=== PATIENT | female | born 1935 | race Caucasian/White ===

== ENCOUNTER 2017-01-14 22:00 | Inpatient (IN) | payer MEDICARE, OTHER ==
[~2017-01-14] VITALS: Ht 167.6 cm; Wt 89.4 kg
[~2017-01-14 22:00] MED LIST: ACET-1757 PO; ACID1TAB7 PO; AMLO10TA2 PO; ASPI-621 PO; ATOR10TA9 PO; CHOL500014 PO; CITA20TA9 PO; CLIN300C93 PO; CLOP75TA PO; DOCU100C8 PO; ENAL20TA68 PO; ESCI20TA PO; ESOM40CA PO; GABA600T PO; GUAI600T53 PO; HEPA500024 SQ; HYDR-3138 PO; IPRA15SP2 INH; IPRA3AMP NEB; IPRA4AER INH; IRBE150T25 PO; IRBE150T49 PO; LEVO250T8 PO; LEVO88TA4 PO; LORA-445 PO; MAG355OR14 PO; MOME13HF INH; NITR0.4T8 SL; ONDA4TAB10 PO; POTA10TA11 PO; POTA10TA57 PO; PRED10TA PO; PRED5TAB19 PO; PREG50CA PO; ROSU40TA PO; TEMA15CA6 PO; VENL150C PO; VENL75TA PO
[2017-01-14] MEDS ORDERED: ENAL5TAB34 PO (22:25)
[2017-01-14] MEDS ORDERED: FLUO10CA13 PO (22:25)
[2017-01-14] MEDS ORDERED: SODIUM CHLORIDE 0.9% 1,000 ML IV ONE (22:35)
[2017-01-14] MEDS ORDERED: SODIUM CHLORIDE 0.9% 1,000ML IVBOLUS ONE (23:00)
[2017-01-14] MEDS ORDERED: SODIUM CHLORIDE FLUSH 10ML SYR IVF ONE (23:00)
[2017-01-14 23:54] LABS: ASPARTATE AMINO TRANSFERASE 123 U/L (15-37); BLOOD UREA NITROGEN 32 mg/dL (7-18)
[2017-01-14 23:57] LABS: DIFF TOTAL CELLS COUNTED 100 CELL DIFF
[2017-01-15 00:03] LABS: VERIFY COUNTS? YES
[2017-01-15 00:14] LABS: IS PT STATUS REG ER OR PRE ER? YES
[2017-01-15] MEDS ORDERED: SODIUM CHLORIDE 0.9% 1,000ML IVBOLUS ONE ×2 (00:30→01:30)
[2017-01-15] MEDS ORDERED: CEFTRIAXONE 1,000 MG in SODIUM CHLORIDE 0.9% 50 ML IVPB ONE (00:30)
[2017-01-15] MEDS ORDERED: CEFTRIAXONE PMX 1GM/50ML 50 ML ONE (00:50)
[2017-01-15 02:22] VITALS: BP 101/56
[2017-01-15] MEDS ORDERED: ONDANSETRON 2MG/ML, 2ML IVPush PRN (03:00)
[2017-01-15] MEDS ORDERED: CEFTRIAXONE 1,000 MG in SODIUM CHLORIDE 0.9% 50 ML IV SCH (03:00)
[2017-01-15] MEDS: HEPARIN 5,000 UNITS/ML, 1ML SQ SCH ×3 (03:23→22:10)
[2017-01-15] MEDS: SODIUM CHLORIDE 0.9% 1,000 ML IV SCH ×3 (03:24→22:12)
[2017-01-15] MEDS: GABAPENTIN 300 MG CAPSULE PO SCH ×4 (06:09→22:09)
[2017-01-15] MEDS: ASPIRIN 81 MG TABLET EC PO SCH (06:10)
[2017-01-15 06:24] LABS: BLOOD UREA NITROGEN 30 mg/dL (7-18)
[2017-01-15] MEDS ORDERED: FAMOTIDINE 20 MG TABLET PO SCH (09:00)
[2017-01-15] MEDS ORDERED: POTASSIUM CHLORIDE 10 MEQ TABLET.ER PO SCH (09:00)
[2017-01-15] MEDS: ALBUTEROL/IPRATROPIUM 2.5MG/0.5MG, 3 ML HHN SCH ×2 (09:00→21:00)
[2017-01-15 09:26] VITALS: BP 106/63
[2017-01-15] MEDS: PREGABALIN 25 MG CAPSULE PO SCH ×2 (10:16→22:09)
[2017-01-15] MEDS: FLUOXETINE 10 MG CAP PO SCH (10:16)
[2017-01-15] MEDS: VENLAFAXINE 75 MG CAP ER PO SCH (10:16)
[2017-01-15] MEDS: LEVOTHYROXINE 88 MCG TABLET PO SCH (10:17)
[2017-01-15] MEDS: SENNA/DOCUSATE TABLET PO SCH (10:17)
[2017-01-15] MEDS: PANTOPROZOLE 40MG TABLET PO SCH (10:37)
[2017-01-15] MEDS: CHOLECALCIFEROL 1,000 UNIT TABLET PO SCH (10:43)
[2017-01-15] MEDS: FLUTICASONE/VILANTEROL 200-25MCG/INH INH SCH (13:06)
[2017-01-15 13:45] VITALS: BP 92/56
[2017-01-15] MEDS ORDERED: MEROPENEM 1 GM in SODIUM CHLORIDE 0.9% 100 ML IV SCH (15:00)
[2017-01-15] MEDS ORDERED: MEROPENEM 1 GM in SODIUM CHLORIDE 0.9% 50 ML IV SCH (15:00)
[2017-01-15 17:52] VITALS: BP 124/62
[2017-01-15] MEDS: ATORVASTATIN 80 MG TABLET PO SCH (22:09)
[2017-01-16 00:48] VITALS: BP_SYST 123; BP_SYST 144; BP_DIAS 57; BP_DIAS 73; BP_DIAS 78
[2017-01-16] MEDS: HYDROcodone/APAP 5/325 TABLET PO PRN ×2 (01:04→12:52)
[2017-01-16] MEDS: MEROPENEM 1 GM in SODIUM CHLORIDE 0.9% 100 ML IV SCH ×2 (03:46→17:26)
[2017-01-16] MEDS: HEPARIN 5,000 UNITS/ML, 1ML SQ SCH ×3 (03:46→21:30)
[2017-01-16 05:52] LABS: BLOOD UREA NITROGEN 27 mg/dL (7-18)
[2017-01-16] MEDS: GABAPENTIN 300 MG CAPSULE PO SCH ×4 (06:24→21:30)
[2017-01-16] MEDS: ASPIRIN 81 MG TABLET EC PO SCH (06:24)
[2017-01-16 07:51] VITALS: BP 118/65
[2017-01-16 07:52] VITALS: BP_SYST 101; BP_SYST 99; BP_DIAS 53; BP_DIAS 55
[2017-01-16] MEDS: ALBUTEROL/IPRATROPIUM 2.5MG/0.5MG, 3 ML HHN SCH ×2 (09:00→21:00)
[2017-01-16] MEDS: PANTOPROZOLE 40MG TABLET PO SCH (09:00)
[2017-01-16] MEDS: SENNA/DOCUSATE TABLET PO SCH (09:00)
[2017-01-16] MEDS: FLUTICASONE/VILANTEROL 200-25MCG/INH INH SCH (09:15)
[2017-01-16] MEDS: SODIUM CHLORIDE 0.9% 1,000 ML IV SCH ×2 (09:15→17:31)
[2017-01-16] MEDS: PREGABALIN 25 MG CAPSULE PO SCH ×2 (09:19→21:30)
[2017-01-16] MEDS: CHOLECALCIFEROL 1,000 UNIT TABLET PO SCH (09:20)
[2017-01-16] MEDS: FLUOXETINE 10 MG CAP PO SCH (09:20)
[2017-01-16] MEDS: VENLAFAXINE 75 MG CAP ER PO SCH (09:20)
[2017-01-16] MEDS: FAMOTIDINE 20 MG TABLET PO SCH (09:20)
[2017-01-16] MEDS: LEVOTHYROXINE 88 MCG TABLET PO SCH (09:21)
[2017-01-16 13:17] VITALS: BP 127/70
[2017-01-16 20:00] VITALS: BP 166/73
[2017-01-16] MEDS: ATORVASTATIN 80 MG TABLET PO SCH (21:30)
[2017-01-17 02:00] VITALS: BP 144/55
[2017-01-17] MEDS: MEROPENEM 1 GM in SODIUM CHLORIDE 0.9% 100 ML IV SCH (04:12)
[2017-01-17] MEDS: SODIUM CHLORIDE 0.9% 1,000 ML IV SCH ×2 (04:12→14:56)
[2017-01-17] MEDS: HEPARIN 5,000 UNITS/ML, 1ML SQ SCH ×3 (04:13→21:17)
[2017-01-17] MEDS: ASPIRIN 81 MG TABLET EC PO SCH (05:02)
[2017-01-17] MEDS: GABAPENTIN 300 MG CAPSULE PO SCH ×4 (05:03→21:17)
[2017-01-17 06:41] LABS: BLOOD UREA NITROGEN 20 mg/dL (7-18)
[2017-01-17 07:30] VITALS: BP 126/75
[2017-01-17] MEDS: FLUOXETINE 10 MG CAP PO SCH (08:18)
[2017-01-17] MEDS: PREGABALIN 25 MG CAPSULE PO SCH ×2 (08:18→21:17)
[2017-01-17] MEDS: PANTOPROZOLE 40MG TABLET PO SCH (08:18)
[2017-01-17] MEDS: VENLAFAXINE 75 MG CAP ER PO SCH (08:18)
[2017-01-17] MEDS: FLUTICASONE/VILANTEROL 200-25MCG/INH INH SCH (08:18)
[2017-01-17] MEDS: LEVOTHYROXINE 88 MCG TABLET PO SCH (08:19)
[2017-01-17] MEDS: CHOLECALCIFEROL 1,000 UNIT TABLET PO SCH (08:19)
[2017-01-17] MEDS: SENNA/DOCUSATE TABLET PO SCH (08:20)
[2017-01-17] MEDS: FAMOTIDINE 20 MG TABLET PO SCH (08:20)
[2017-01-17] MEDS: ALBUTEROL/IPRATROPIUM 2.5MG/0.5MG, 3 ML HHN SCH ×2 (09:00→22:50)
[2017-01-17] MEDS ORDERED: METHOCARBAMOL 500 MG TABLET PO PRN (11:00)
[2017-01-17] MEDS: LACTOBACILLUS CHEW TABLET PO SCH ×3 (12:16→21:17)
[2017-01-17] MEDS: CEFTRIAXONE 2 GM in SODIUM CHLORIDE 0.9% 50 ML IV SCH (12:16)
[2017-01-17 13:05] VITALS: BP 123/72
[2017-01-17 20:00] VITALS: BP 169/81
[2017-01-17] MEDS: ATORVASTATIN 80 MG TABLET PO SCH (21:17)
[2017-01-18 02:00] VITALS: BP 145/65
[2017-01-18] MEDS: HEPARIN 5,000 UNITS/ML, 1ML SQ SCH ×3 (04:26→20:29)
[2017-01-18 05:22] LABS: BLOOD UREA NITROGEN 17 mg/dL (7-18)
[2017-01-18] MEDS: ASPIRIN 81 MG TABLET EC PO SCH (05:33)
[2017-01-18] MEDS: GABAPENTIN 300 MG CAPSULE PO SCH ×4 (05:33→20:30)
[2017-01-18 06:40] VITALS: BP 114/56
[2017-01-18] MEDS: ALBUTEROL/IPRATROPIUM 2.5MG/0.5MG, 3 ML HHN SCH ×2 (08:45→21:15)
[2017-01-18] MEDS: SENNA/DOCUSATE TABLET PO SCH (09:00)
[2017-01-18] MEDS: VENLAFAXINE 75 MG CAP ER PO SCH (09:42)
[2017-01-18] MEDS: LEVOTHYROXINE 88 MCG TABLET PO SCH (09:42)
[2017-01-18] MEDS: FLUTICASONE/VILANTEROL 200-25MCG/INH INH SCH (09:42)
[2017-01-18] MEDS: CHOLECALCIFEROL 1,000 UNIT TABLET PO SCH (09:43)
[2017-01-18] MEDS: PANTOPROZOLE 40MG TABLET PO SCH (09:43)
[2017-01-18] MEDS: LACTOBACILLUS CHEW TABLET PO SCH ×3 (09:44→20:30)
[2017-01-18] MEDS: PREGABALIN 25 MG CAPSULE PO SCH ×2 (09:44→20:30)
[2017-01-18] MEDS: FLUOXETINE 10 MG CAP PO SCH (09:44)
[2017-01-18] MEDS: CEFTRIAXONE 2 GM in SODIUM CHLORIDE 0.9% 50 ML IV SCH (11:27)
[2017-01-18 13:10] VITALS: BP 138/74
[2017-01-18 20:00] VITALS: BP 160/72
[2017-01-18] MEDS: ATORVASTATIN 80 MG TABLET PO SCH (20:30)
[2017-01-19 02:00] VITALS: BP 153/67
[2017-01-19 05:15] LABS: ASPARTATE AMINO TRANSFERASE 80 U/L (15-37); BLOOD UREA NITROGEN 17 mg/dL (7-18)
[2017-01-19] MEDS: HEPARIN 5,000 UNITS/ML, 1ML SQ SCH ×3 (05:24→20:36)
[2017-01-19] MEDS: GABAPENTIN 300 MG CAPSULE PO SCH ×4 (05:25→20:36)
[2017-01-19] MEDS: ASPIRIN 81 MG TABLET EC PO SCH (05:25)
[2017-01-19] MEDS: LACTOBACILLUS CHEW TABLET PO SCH ×3 (08:23→20:36)
[2017-01-19] MEDS: FLUOXETINE 10 MG CAP PO SCH (08:23)
[2017-01-19] MEDS: LEVOTHYROXINE 88 MCG TABLET PO SCH (08:23)
[2017-01-19] MEDS: PREGABALIN 25 MG CAPSULE PO SCH ×2 (08:23→20:36)
[2017-01-19] MEDS: VENLAFAXINE 75 MG CAP ER PO SCH (08:23)
[2017-01-19] MEDS: FLUTICASONE/VILANTEROL 200-25MCG/INH INH SCH (08:23)
[2017-01-19] MEDS: CHOLECALCIFEROL 1,000 UNIT TABLET PO SCH (08:23)
[2017-01-19 08:24] VITALS: BP 153/74
[2017-01-19] MEDS: SENNA/DOCUSATE TABLET PO SCH (08:24)
[2017-01-19] MEDS: PANTOPROZOLE 40MG TABLET PO SCH (08:24)
[2017-01-19] MEDS: ALBUTEROL/IPRATROPIUM 2.5MG/0.5MG, 3 ML NPPB SCH ×2 (09:00→19:30)
[2017-01-19] MEDS: ALBUTEROL/IPRATROPIUM 2.5MG/0.5MG, 3 ML HHN SCH (09:00)
[2017-01-19] MEDS ORDERED: CEFTRIAXONE PMX 2GM/50ML 50 ML IV SCH (11:00)
[2017-01-19 13:52] VITALS: BP 135/78
[2017-01-19 20:00] VITALS: BP 154/70
[2017-01-19] MEDS: ATORVASTATIN 80 MG TABLET PO SCH (20:36)
[2017-01-20 02:00] VITALS: BP 132/66
[2017-01-20] MEDS: HYDROcodone/APAP 5/325 TABLET PO PRN ×2 (02:23→08:55)
[2017-01-20] MEDS: HEPARIN 5,000 UNITS/ML, 1ML SQ SCH ×2 (06:15→15:12)
[2017-01-20] MEDS: ASPIRIN 81 MG TABLET EC PO SCH (06:16)
[2017-01-20] MEDS: GABAPENTIN 300 MG CAPSULE PO SCH ×3 (06:16→15:15)
[2017-01-20] MEDS: ALBUTEROL/IPRATROPIUM 2.5MG/0.5MG, 3 ML NPPB SCH (07:11)
[2017-01-20 07:19] VITALS: BP 130/69
[2017-01-20] MEDS ORDERED: METH500T7 PO (08:28)
[2017-01-20] MEDS ORDERED: HEPA5000 SQ (08:28)
[2017-01-20] MEDS ORDERED: CEFT2FRO2 IV (08:28)
[2017-01-20] MEDS ORDERED: HYDR-3240 PO (08:28)
[2017-01-20] MEDS: FLUTICASONE/VILANTEROL 200-25MCG/INH INH SCH (08:41)
[2017-01-20] MEDS: PREGABALIN 25 MG CAPSULE PO SCH (08:43)
[2017-01-20] MEDS: CHOLECALCIFEROL 1,000 UNIT TABLET PO SCH (08:44)
[2017-01-20] MEDS: LEVOTHYROXINE 88 MCG TABLET PO SCH (08:45)
[2017-01-20] MEDS: SENNA/DOCUSATE TABLET PO SCH (08:45)
[2017-01-20] MEDS: LACTOBACILLUS CHEW TABLET PO SCH ×2 (08:45→15:13)
[2017-01-20] MEDS: FLUOXETINE 10 MG CAP PO SCH (08:46)
[2017-01-20] MEDS: PANTOPROZOLE 40MG TABLET PO SCH (08:47)
[2017-01-20] MEDS: VENLAFAXINE 75 MG CAP ER PO SCH (08:48)
[2017-01-20] MEDS ORDERED: CEFTRIAXONE PMX 2GM/50ML 50 ML IV SCH (11:00)
[2017-01-20 14:00] VITALS: BP 166/79
== END 2017-01-20 16:10 | DRG 871 ==
LOC: ED 01-15 01:29 → EDIP 01-15 01:35 → 5SO 01-15 01:54 → 4EST 01-15 19:50
PROVIDERS: ADMIT Internal Medicine
PROC: 02HV33Z Insertion of Infusion Device into Superior Vena Cava, Percutaneous Approach (ICD-10-PCS; principal; 2017-01-19)
PROC: B548ZZA Ultrasonography of Superior Vena Cava, Guidance (ICD-10-PCS; 2017-01-19)
DX: A41.9 Sepsis, unspecified organism (principal); N17.0 Acute kidney failure with tubular necrosis; E43 Unspecified severe protein-calorie malnutrition; R65.21 Severe sepsis with septic shock; K72.00 Acute and subacute hepatic failure without coma; N39.0 Urinary tract infection, site not specified; N12 Tubulo-interstitial nephritis, not specified as acute or chronic; G62.9 Polyneuropathy, unspecified; B96.20 Unspecified Escherichia coli [E. coli] as the cause of diseases classified elsewhere; D47.3 Essential (hemorrhagic) thrombocythemia; D64.9 Anemia, unspecified; E03.9 Hypothyroidism, unspecified; E78.5 Hyperlipidemia, unspecified; E86.0 Dehydration; I12.9 Hypertensive chronic kidney disease with stage 1 through stage 4 chronic kidney disease, or unspecified chronic kidney disease; I95.1 Orthostatic hypotension; J44.9 Chronic obstructive pulmonary disease, unspecified; M79.7 Fibromyalgia; N18.3 Chronic kidney disease, stage 3 (moderate); Z66 Do not resuscitate; Z80.3 Family history of malignant neoplasm of breast; Z86.73 Personal history of transient ischemic attack (TIA), and cerebral infarction without residual deficits; Z87.891 Personal history of nicotine dependence; Z88.2 Allergy status to sulfonamides; Z88.8 Allergy status to other drugs, medicaments and biological substances; Z91.013 Allergy to seafood; Z68.31 Body mass index [BMI] 31.0-31.9, adult
CPT/HCPCS: 36415; 36569; 71010; 76937; 77001; 80048; 80053; 81001; 83605; 83735; 83880; 84145; 84436; 84443; 84484; 85025; 87040; 87077; 87086; 87186; 93005; 94640; 96361; 96365; J0696; J1644; J2185; J7620; C1751; J7030

== ENCOUNTER 2018-05-31 11:20 | Inpatient (IN) | payer MEDICARE, OTHER ==
[~2018-05-31] VITALS: Ht 165.1 cm; Wt 82.6 kg
[~2018-05-31 11:20] MED LIST changes: -AMLO10TA2 PO; +AMLO10TA6 PO; +CEFT2FRO2 IV; -CHOL500014 PO; +CHOL500045 PO; +CLIN300C8 PO; -CLIN300C93 PO; +DOCU100C33 PO; -DOCU100C8 PO; +ENAL5TAB70 PO; +FLUO10CA13 PO; -GUAI600T53 PO; +GUAI600T80 PO; +HEPA50002 SQ; -HYDR-3138 PO; +HYDR-3237 PO; +HYDR-3240 PO; -IPRA3AMP NEB; +IPRA3AMP30 NEB; +METH500T7 PO; +NITR0.4T28 SL; -NITR0.4T8 SL
[2018-05-31] MEDS ORDERED: SODIUM CHLORIDE FLUSH 10ML SYR IVF ONE (11:30)
[2018-05-31] MEDS ORDERED: SODIUM CHLORIDE 0.9% 1,000ML IVBOLUS ONE (11:30)
[2018-05-31 12:15] LABS: BASOPHILS # (AUTO) 0.04 x10^3/uL (0-0.1); BASOPHILS % (AUTO) 1 % (0-1); EOSINOPHILS # (AUTO) 0.13 x10^3/uL (0-0.4); EOSINOPHILS % (AUTO) 1 % (1-7); LYMPHOCYTES # (AUTO) 1.29 x10^3/uL (1-3.4); LYMPHOCYTES % (AUTO) 14 % (22-44); MD NO; MEAN CORPUSCULAR HEMOGLOBIN 29.7 pg (27.0-34.8); MEAN CORPUSCULAR VOLUME 89.9 fL (80-100); MEAN PLATELET VOLUME 8.1 fL (7.4-10.4); MONOCYTES # (AUTO) 0.75 x10^3/uL (0.2-0.8); MONOCYTES % (AUTO) 8 % (2-9); NEUTROPHILS # (AUTO) 6.75 x10^3/uL (1.8-6.8); NEUTROPHILS % (AUTO) 75 % (42-75); PLATELET COUNT 286 x10^3/uL (130-400); RED BLOOD COUNT 5.41 x10^6/uL (3.82-5.3); RED CELL DISTRIBUTION WIDTH 14.5 % (9.6-15.2)
[2018-05-31 12:25] LABS: ALANINE AMINOTRANSFERASE 29 U/L (12-78); ALBUMIN 3.8 g/dL (3.4-5.0); ANION GAP 8 mmol/L (5-15); CALCIUM 9.5 mg/dL (8.5-10.1); CHLORIDE 106 mmol/L (98-107)
[2018-05-31 12:30] LABS: ALKALINE PHOSPHATASE 108 U/L (45-117); BILIRUBIN,TOTAL 0.5 mg/dL (0.2-1.0); CREATININE 1.23 mg/dL (0.55-1.02); TOTAL PROTEIN 8.1 g/dL (6.4-8.2); TROPONIN I < 0.015 ng/mL (0.000-0.045)
[2018-05-31 13:11] LABS: CULTURE INDICATED? YES; MICROSCOPIC INDICATED
[2018-05-31] MEDS ORDERED: IRBE150T49 PO (14:13)
[2018-05-31] MEDS ORDERED: POTA99TA24 PO (14:13)
[2018-05-31] MEDS ORDERED: RANI150T4 PO (14:13)
[2018-05-31 15:05] VITALS: BP 186/78
[2018-05-31] MEDS ORDERED: CEFTRIAXONE PMX 1GM/50ML 50 ML IV ONE (15:30)
[2018-05-31] MEDS ORDERED: POLYETHYLENE GLYCOL 17 GM PACKET PO PRN (16:00)
[2018-05-31] MEDS ORDERED: LABETALOL 5MG/ML, 20ML IVPush PRN (16:00)
[2018-05-31] MEDS ORDERED: ONDANSETRON 2MG/ML, 2ML IVPush PRN (16:00)
[2018-05-31] MEDS ORDERED: ONDANSETRON ODT 4 MG PO PRN (16:00)
[2018-05-31] MEDS ORDERED: DOCUSATE 100 MG CAPSULE PO PRN (16:00)
[2018-05-31] MEDS: HEPARIN 5,000 UNITS/ML, 1ML SQ SCH ×2 (16:00→20:48)
[2018-05-31] MEDS ORDERED: VENLAFAXINE XR 37.5MG CAP.ER.24H PO SCH (16:00)
[2018-05-31] MEDS ORDERED: hydrALAzine 20 MG/ML, 1ML IVPush PRN (16:00)
[2018-05-31] MEDS ORDERED: BISACODYL 10 MG SUPP PR PRN (16:00)
[2018-05-31] MEDS ORDERED: ALBUTEROL/IPRATROPIUM 2.5MG/0.5MG, 3 ML ONE (16:21)
[2018-05-31] MEDS: ALBUTEROL/IPRATROPIUM 2.5MG/0.5MG, 3 ML NPPB SCH (16:25)
[2018-05-31] MEDS: GABAPENTIN 300 MG CAPSULE PO SCH ×2 (18:06→20:49)
[2018-05-31] MEDS: SODIUM CHLORIDE 0.9% 1,000 ML IV SCH (18:06)
[2018-05-31] MEDS: CEFTRIAXONE PMX 1GM/50ML 50 ML IV SCH (18:06)
[2018-05-31 19:20] VITALS: BP 173/77
[2018-05-31] MEDS: FAMOTIDINE 20 MG TABLET PO SCH (20:49)
[2018-05-31] MEDS: ATORVASTATIN 80 MG TABLET PO SCH (20:50)
[2018-05-31] MEDS: PREGABALIN 25 MG CAPSULE PO SCH (20:50)
[2018-05-31] MEDS: FORMOTEROL INH SCH (21:00)
[2018-05-31] MEDS ORDERED: TEMPLATE NON-FORMULARY MED. (Rosuvastatin Calcium** (Crestor**) 40 MG) PO SCH (21:00)
[2018-05-31] MEDS ORDERED: TEMPLATE NON-FORMULARY MED. (Ranitidine Hcl** 150 MG) PO SCH (21:00)
[2018-05-31] MEDS: MOMETASONE INH SCH (21:00)
[2018-06-01] MEDS: SODIUM CHLORIDE 0.9% 1,000 ML IV SCH (01:58)
[2018-06-01 02:09] VITALS: BP 125/67
[2018-06-01 05:39] LABS: BASOPHILS # (AUTO) 0.04 x10^3/uL (0-0.1); BASOPHILS % (AUTO) 1 % (0-1); EOSINOPHILS % (AUTO) 6 % (1-7); LYMPHOCYTES # (AUTO) 1.64 x10^3/uL (1-3.4); LYMPHOCYTES % (AUTO) 23 % (22-44); MD NO; MEAN CORPUSCULAR HEMOGLOBIN 29.5 pg (27.0-34.8); MEAN CORPUSCULAR HGB CONC 33.3 g/dL (32.4-35.8); MEAN CORPUSCULAR VOLUME 88.7 fL (80-100); MEAN PLATELET VOLUME 8.2 fL (7.4-10.4); MONOCYTES % (AUTO) 10 % (2-9); NEUTROPHILS # (AUTO) 4.26 x10^3/uL (1.8-6.8); NEUTROPHILS % (AUTO) 61 % (42-75); PLATELET COUNT 208 x10^3/uL (130-400); RED BLOOD COUNT 4.09 x10^6/uL (3.82-5.3); RED CELL DISTRIBUTION WIDTH 14.2 % (9.6-15.2)
[2018-06-01] MEDS: HEPARIN 5,000 UNITS/ML, 1ML SQ SCH ×3 (05:39→20:29)
[2018-06-01] MEDS: GABAPENTIN 300 MG CAPSULE PO SCH ×4 (05:39→20:28)
[2018-06-01 05:50] LABS: ANION GAP 10 mmol/L (5-15); CALCIUM 8.2 mg/dL (8.5-10.1); CHLORIDE 109 mmol/L (98-107)
[2018-06-01 05:52] LABS: CREATININE 1.05 mg/dL (0.55-1.02)
[2018-06-01] MEDS: ALBUTEROL/IPRATROPIUM 2.5MG/0.5MG, 3 ML NPPB SCH ×2 (07:22→21:00)
[2018-06-01 07:56] VITALS: BP 147/70
[2018-06-01] MEDS: LEVOTHYROXINE 88 MCG TABLET PO SCH (08:08)
[2018-06-01] MEDS: MOMETASONE INH SCH ×2 (09:00→20:28)
[2018-06-01] MEDS: FORMOTEROL INH SCH ×2 (09:00→20:28)
[2018-06-01] MEDS: PREGABALIN 25 MG CAPSULE PO SCH ×2 (09:05→20:27)
[2018-06-01] MEDS: CHOLECALCIFEROL 5,000u TAB PO SCH (09:05)
[2018-06-01] MEDS: FAMOTIDINE 20 MG TABLET PO SCH ×2 (09:05→20:28)
[2018-06-01] MEDS: IRBESARTAN 150 MG TABLET PO SCH (09:05)
[2018-06-01] MEDS: VENLAFAXINE 75 MG CAP ER PO SCH (09:25)
[2018-06-01 13:46] VITALS: BP 107/67
[2018-06-01] MEDS: LIDODERM 5% PATCH TD PRN (13:49)
[2018-06-01] MEDS: CEFTRIAXONE PMX 1GM/50ML 50 ML IV SCH (16:47)
[2018-06-01 19:33] VITALS: BP 145/73
[2018-06-01] MEDS: ATORVASTATIN 80 MG TABLET PO SCH (20:28)
[2018-06-02 03:10] VITALS: BP 116/60
[2018-06-02] MEDS: HEPARIN 5,000 UNITS/ML, 1ML SQ SCH ×3 (05:53→20:34)
[2018-06-02] MEDS: GABAPENTIN 300 MG CAPSULE PO SCH ×4 (05:53→20:34)
[2018-06-02 05:54] LABS: CHLORIDE 108 mmol/L (98-107)
[2018-06-02 05:59] LABS: ANION GAP 8 mmol/L (5-15); CALCIUM 8.3 mg/dL (8.5-10.1); CREATININE 1.19 mg/dL (0.55-1.02)
[2018-06-02 06:59] VITALS: BP 129/65
[2018-06-02] MEDS: ALBUTEROL/IPRATROPIUM 2.5MG/0.5MG, 3 ML NPPB SCH ×2 (07:36→20:50)
[2018-06-02] MEDS: LEVOTHYROXINE 88 MCG TABLET PO SCH (07:42)
[2018-06-02] MEDS ORDERED: METHYL SALICYLATE/MENTHOL CRM 85GM TP PRN (08:00)
[2018-06-02] MEDS: FORMOTEROL INH SCH ×2 (08:45→21:00)
[2018-06-02] MEDS: MOMETASONE INH SCH ×2 (08:45→21:00)
[2018-06-02] MEDS: PREGABALIN 25 MG CAPSULE PO SCH ×2 (08:51→20:34)
[2018-06-02] MEDS: VENLAFAXINE 75 MG CAP ER PO SCH (08:51)
[2018-06-02] MEDS: CHOLECALCIFEROL 5,000u TAB PO SCH (08:52)
[2018-06-02] MEDS: FAMOTIDINE 20 MG TABLET PO SCH ×2 (08:52→20:35)
[2018-06-02] MEDS: IRBESARTAN 150 MG TABLET PO SCH (08:52)
[2018-06-02] MEDS ORDERED: VENLAFAXINE 75 MG CAP ER PO SCH (09:00)
[2018-06-02] MEDS ORDERED: GABAPENTIN 100 MG CAPSULE PO PRN (13:30)
[2018-06-02 15:05] VITALS: BP 118/66
[2018-06-02] MEDS: CEFTRIAXONE PMX 1GM/50ML 50 ML IV SCH (17:07)
[2018-06-02 18:41] VITALS: BP 149/79
[2018-06-02] MEDS: ATORVASTATIN 80 MG TABLET PO SCH (20:34)
[2018-06-03 01:29] VITALS: BP 133/68
[2018-06-03 05:12] LABS: ALBUMIN 2.6 g/dL (3.4-5.0); ANION GAP 9 mmol/L (5-15); CALCIUM 8.5 mg/dL (8.5-10.1); CHLORIDE 106 mmol/L (98-107); CREATININE 1.23 mg/dL (0.55-1.02)
[2018-06-03] MEDS: LEVOTHYROXINE 88 MCG TABLET PO SCH (06:16)
[2018-06-03] MEDS: HEPARIN 5,000 UNITS/ML, 1ML SQ SCH (06:16)
[2018-06-03] MEDS: GABAPENTIN 300 MG CAPSULE PO SCH ×2 (06:17→12:18)
[2018-06-03 06:50] VITALS: BP 145/76
[2018-06-03] MEDS: ALBUTEROL/IPRATROPIUM 2.5MG/0.5MG, 3 ML NPPB SCH (08:19)
[2018-06-03] MEDS: FORMOTEROL INH SCH (08:34)
[2018-06-03] MEDS: MOMETASONE INH SCH (08:34)
[2018-06-03] MEDS: VENLAFAXINE 75 MG CAP ER PO SCH (08:38)
[2018-06-03] MEDS: CHOLECALCIFEROL 5,000u TAB PO SCH (08:38)
[2018-06-03] MEDS: IRBESARTAN 150 MG TABLET PO SCH (08:38)
[2018-06-03] MEDS: PREGABALIN 25 MG CAPSULE PO SCH (08:38)
[2018-06-03] MEDS: FAMOTIDINE 20 MG TABLET PO SCH (08:38)
[2018-06-03] MEDS ORDERED: LACTULOSE 10 GM/15 ML UDC PO SCH (09:00)
[2018-06-03] MEDS ORDERED: LACT1CAP35 PO (09:21)
[2018-06-03] MEDS ORDERED: POLY17PO5 PO (09:21)
[2018-06-03] MEDS ORDERED: CEFD300C37 PO (09:21)
[2018-06-03 12:13] VITALS: BP 152/67
[2018-06-03] MEDS: LIDODERM 5% PATCH TD PRN (12:18)
[2018-06-03] MEDS ORDERED: ACETAMINOPHEN 325 MG TABLET PO PRN (13:00)
== END 2018-06-03 13:46 | disposition home health service (06) | DRG 872 ==
LOC: ED 12:39 → EDIP 13:46 → 3NE 14:49
PROVIDERS: ADMIT Internal Medicine; ATTEND Internal Medicine
DX: A41.9 Sepsis, unspecified organism (principal); N39.0 Urinary tract infection, site not specified; J96.10 Chronic respiratory failure, unspecified whether with hypoxia or hypercapnia; J98.11 Atelectasis; K57.32 Diverticulitis of large intestine without perforation or abscess without bleeding; R55 Syncope and collapse; R19.7 Diarrhea, unspecified; E86.0 Dehydration; I12.9 Hypertensive chronic kidney disease with stage 1 through stage 4 chronic kidney disease, or unspecified chronic kidney disease; N18.3 Chronic kidney disease, stage 3 (moderate); E03.9 Hypothyroidism, unspecified; J44.9 Chronic obstructive pulmonary disease, unspecified; Z88.2 Allergy status to sulfonamides; Z88.8 Allergy status to other drugs, medicaments and biological substances; Z88.3 Allergy status to other anti-infective agents; Z91.013 Allergy to seafood; E78.5 Hyperlipidemia, unspecified; F32.9 Major depressive disorder, single episode, unspecified; K59.00 Constipation, unspecified; M79.7 Fibromyalgia; Z80.3 Family history of malignant neoplasm of breast; Z82.49 Family history of ischemic heart disease and other diseases of the circulatory system; Z87.891 Personal history of nicotine dependence; Z90.710 Acquired absence of both cervix and uterus; Z90.49 Acquired absence of other specified parts of digestive tract; B96.20 Unspecified Escherichia coli [E. coli] as the cause of diseases classified elsewhere; Z99.81 Dependence on supplemental oxygen; Z91.14 Patient's other noncompliance with medication regimen
CPT/HCPCS: 36415; 71045; 72050; 74176; 80048; 80053; 81001; 82040; 83735; 84100; 84484; 85025; 87077; 87086; 87186; 93005; 94640; 99285; G0378; J0696; J1644; J7620; J7030

== ENCOUNTER 2019-03-02 11:37 | Emergency (ER) | payer MEDICARE ==
[~2019-03-02] VITALS: Ht 165.1 cm; Wt 77.0 kg
[~2019-03-02 11:37] MED LIST changes: -AMLO10TA6 PO; +AMLO10TA8 PO; +ASPI-496 PO; -ASPI-621 PO; +ASPI81TA45 PO; +CEFD300C37 PO; +DULO30CA2 PO; +GABA300C10 PO; +LACT1CAP35 PO; +LOSA100T14 PO; +PANT40TA3 PO; +POLY17PO5 PO; +POTA99TA24 PO; +RANI150T4 PO; +VENL150C6 PO; +VENL75CA6 PO
[2019-03-02] MEDS ORDERED: DEXAMETHASONE 4 MG TABLET ONE (11:53)
[2019-03-02] MEDS ORDERED: LORazepam 1MG TABLET ONE (11:53)
[2019-03-02] MEDS ORDERED: DEXAMETHASONE 4 MG TABLET PO ONE (12:00)
[2019-03-02] MEDS ORDERED: LORazepam 1MG TABLET PO ONE (12:00)
--- NOTE | 2019-03-02 12:00 | NUR ---
PT BIB [facility] FOR NECK PAIN AND STIFFNESS WITH ASSOCIATED HEADACHE FOR ABOUT 1 WEEK. PT TOOK TYLENOL AND ASSOCIATED PAIN MEDS AT HOME WITH NO RELIEF. TENDERNESS NOTED TO CERVICAL SPINE UPON EXAM, DIFFICULTY TURNING NECK. MD AT BEDSIDE FOR EXAM. VSS EXCEPT HTN, MD AWARE. PT AAO X 4, DRESSED IN GOWN AND RESTING IN GURNEY, ATTACHED TO MONITOR WITH FALL PRECAUTIONS IN PLACE AND CALL LIGHT WITHIN REACH. PT ARRIVED ON 3L NC, WEARS HOME 02 AT HOME, 3 L, FOR COPD.
--- NOTE | 2019-03-02 12:02 | NUR ---
PT MEDICATED PER MD ORDER.
--- NOTE | 2019-03-02 12:18 | NUR ---
PT RESTING IN GURNEY, NAD, VSS. PT STATES "MILD RELIEF" WITH MEDICATIONS.
--- NOTE | 2019-03-02 12:34 | NUR ---
PT HAS HX MRSA IN NARES, ISO CART PLACED IN FRONT OF ROOM.
--- NOTE | 2019-03-02 12:45 | NUR ---
CT CALLED TO FOLLOW UP ON DELAY IN SCAN, TEST TO BE COMPLETED WHEN CT AVAILABLE.
--- NOTE | 2019-03-02 12:58 | NUR ---
PT TO CT.
[2019-03-02] MEDS ORDERED: BUPIVACAINE/PF 0.5% INFIL ONE (13:00)
--- NOTE | 2019-03-02 13:10 | NUR ---
MEDICATION REQUESTED FROM PHARMACY.
--- NOTE | 2019-03-02 13:15 | NUR ---
PT BACK FROM CT, ATTACHED TO MONITOR, NAD, 3 L O2, FALL PRECAUTIONS IN PLACE.
--- NOTE | 2019-03-02 13:23 | NUR ---
SON UPDATED ON PT CONDITION VIA PHONE, ALL QUESTIONS ANSWERED.
[2019-03-02 13:45] VITALS: BP 149/76
--- NOTE | 2019-03-02 13:45 | NUR ---
pt sba to bedside commode, steady gait. vss, aao x 4, nad.
--- NOTE | 2019-03-02 14:21 | NUR ---
THIS RN SPOKE TO DAUGHTER ON PHONE, UPDATES GIVEN, ALL QUESTIONS ANSWERED.
--- NOTE | 2019-03-02 14:37 | NUR ---
THIS RN SPOKE WITH PT'S SON ABOUT RIDE HOME, HE STATES HE IS UNABLE TO PICK PT UP. THIS RN EDUCATED SON THAT PT WILL BE WAITING IN THE ER LOBBY FOR HER WHEN SHE DISCHARGES. THIS RN ATTEMPTED TO CALL PT'S DAUGHTER, NO ANSWER AND VOICEMAIL BOX FULL.
--- NOTE | 2019-03-02 14:42 | NUR ---
THIS RN CALLED PT'S GRAND-DAUGHTER ERIC, SHE WILL CALL BACK IF AVAILABLE TO PICK HER UP.
--- NOTE | 2019-03-02 15:02 | NUR ---
PT DRESSED IN CLOTHES AND D/C PAPERWORK COMPLETED BY ROMAINE SHAFFER RN. STILL AWAITING CALL BACK FROM PT'S GRAND-DAUGHTER ABOUT RIDE STATUS.
--- NOTE | 2019-03-02 15:08 | NUR ---
THIS RN SPOKE WITH PT'S GRAND-DAUGHTER, SHE WILL BE HERE TO PICK PT UP FROM LOBBY WHEN SHE IS OFF WORK. 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
== END 2019-03-02 15:08 | disposition home or self-care (01) ==
LOC: ED 12:52
DX: M54.2 Cervicalgia (principal); M47.892 Other spondylosis, cervical region; M62.838 Other muscle spasm; G44.219 Episodic tension-type headache, not intractable; J44.9 Chronic obstructive pulmonary disease, unspecified; I10 Essential (primary) hypertension; Z87.891 Personal history of nicotine dependence; Z90.49 Acquired absence of other specified parts of digestive tract; Z90.710 Acquired absence of both cervix and uterus
CPT/HCPCS: 64405; 72125; 99284